=== PATIENT | female | born 1995 | race Asian ===

== ENCOUNTER 2020-11-28 00:28 | Emergency (ER) | payer OTHER ==
[~2020-11-28] VITALS: Ht 162.6 cm; Wt 56.2 kg
[2020-11-28] MEDS ORDERED: AUGMENTIN 875-1 EAC1 ORAL (01:00)
--- NOTE | 2020-11-28 01:05 | NUR ---
ED Nurse Note: Pt walked into ED from home c/o cat bite on left palm. Skin is broken, clear drainage coming from wound. No redness observed.
[2020-11-28 01:10] VITALS: BP 131/96
--- NOTE | 2020-11-28 01:19 | Emergency Room Report ---
History of Present Illness General Chief Complaint: Animal Bite Source: Patient Present Illness HPI 25-year-old female here with cat bite. Patient says that her cat which is up-to-date on its vaccinations and otherwise healthy bit her left thumb earlier tonight. No bleeding or focal numbness or weakness. 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 COVID-19 Screening: Negative COVID-19 COVID-19 Testing Source: unknown Patient History Now: No Nursing Documentation-[facility] Past Medical History: No Stated History Review of Systems All Other Systems: negative except mentioned in HPI Physical Exam Vital Signs Date Time Temp Pulse Resp B/P (MAP) Pulse Ox O2 Delivery O2 Flow Rate FiO2 11/28/20 01:02 98.1 83 18 131/96 (108) 97 Room Air Sp02 EP Interpretation: reviewed, normal General Appearance: no apparent distress, alert, non-toxic Head: normocephalic, atraumatic Eyes: bilateral eye normal inspection, bilateral eye PERRL ENT: hearing grossly normal, normal pharynx, no angioedema, normal voice Neck: full range of motion, supple/symm/no masses Cardiovascular #1: regular rate, rhythm, no edema Cardiovascular #2: 2+ carotid (R), 2+ carotid (L), 2+ radial (R), 2+ radial (L), 2+ dorsalis pedis (R), 2+ dorsalis pedis (L) Gastrointestinal: non-distended Rectal: deferred Genitourinary: normal inspection, no CVA tenderness Musculoskeletal: back normal, normal range of motion, gait/station normal, other - Punctate wound at base of left thumb on extensor surface. No bleeding or surrounding erythema or induration Neurologic: alert, motor strength/tone normal, oriented x3, sensory intact, responsive, speech normal Psychiatric: judgement/insight normal, memory normal, mood/affect normal, no suicidal/homicidal ideation Lymphatic: no adenopathy Medical Decision Making Diagnostic Impression: Primary Impression: Cat bite ER Course 25-year-old female here with cat bite. Patient was bitten by her own cat. Her cat is up-to-date on its vaccinations and is otherwise healthy. Patient says "she bit me only because she got scared." Patient had a small punctate wound at the base of her left thumb. No sign of bleeding or any cellulitis. Given prescription for 1 week of Augmentin. Told to return with any worsening symptoms. She expressed understanding and was discharged. Last Vital Signs Date Time Temp Pulse Resp B/P (MAP) Pulse Ox O2 Delivery O2 Flow Rate FiO2 11/28/20 01:10 98.1 75 18 131/96 97 Room Air Disposition: HOME, SELF-CARE Condition: Stable Scripts Amoxicillin/Potassium Clav 875-125* (AUGMENTIN 875-125 TABLET*) 1 Each Tablet 1 TAB ORAL TWICE A DAY, #14 TAB Prov: Mesfin Blakely M.D. 11/28/20 [facility]: [facility] Patient Instructions: Animal Bite Mesfin Blakely M.D. Nov 28, 2020 01:19
[2020-11-28 01:29] VITALS: BP 127/90
--- NOTE | 2020-11-28 01:29 | NUR ---
ER DISCHARGE NOTE: Patient is cleared to be discharged per ERMD, pt is aox4, on room air, with stable vital signs. pt was given dc paper prescription, with instructions to come back if site becomes red swollen, pus drainage or fever/chills develop. pt was able to verbalize understanding, pt id band removed. pt is able to ambulate with steady gait. pt took all belongings.
== END 2020-11-28 01:29 | disposition home or self-care (01) ==
LOC: EMR 00:43
DX: S81.852A Open bite, left lower leg, initial encounter (principal); W55.01XA Bitten by cat, initial encounter; Y92.9 Unspecified place or not applicable
CPT/HCPCS: 99282